=== PATIENT | male | born 1945 | race African-American/Black ===

== ENCOUNTER 2018-05-12 16:13 | Observation (INO) | payer MEDICARE ==
[~2018-05-12] VITALS: Ht 177.8 cm; Wt 105.5 kg
[2018-05-12 17:51] LABS: BASOPHILS % 1.3 % (0.0-2.0); EOSINOPHILS % 3.1 % (0.0-5.0); HEMATOCRIT. 39.2 % (42.0-52.0); HEMOGLOBIN. 13.3 g/dL (14.0-18.0); LYMPHOCYTES % 31.4 % (20.0-50.0); MEAN CORPUSCULAR HEMOGLOBIN 33.3 pg (28.0-32.0); MONOCYTES % 9.1 % (2.0-8.0); NEUTROPHILS % 55.1 % (40.0-76.0); PLATELET 191 x1000/uL (130-400); RED BLOOD CELL COUNT 3.99 mill/uL (4.7-6.1); RED CELL DISTRIBUTION WIDTH 14.2 % (11.6-14.6)
[2018-05-12 17:55] LABS: INR 1.2; PROTHROMBIN TIME 12.1 sec (9.4-11.6)
[2018-05-12 17:56] LABS: CHLORIDE 102 mEq/L (98-107)
[2018-05-12] MEDS ORDERED: FUROSEMIDE 40MG/4ML VIAL IV ONE (18:30)
[2018-05-12] MEDS ORDERED: ASPIRIN 81MG TABLET PO ONE (18:30)
[2018-05-12] MEDS ORDERED: NITROGLYCERIN 0.4MG TABLET SL SL PRN (18:30)
[2018-05-12] MEDS ORDERED: ALBUTEROL (0.083%) 2.5MG/3ML NEB HHN ONE (19:00)
[2018-05-13] VITALS (7 sets, daily range): BP systolic 91–129; BP diastolic 51–77
[2018-05-13] MEDS ORDERED: ACETAMINOPHEN 325MG TABLET PO PRN (02:15)
[2018-05-13] MEDS ORDERED: ISOS30TA11 MT (02:30)
[2018-05-13] MEDS ORDERED: LIP40 MT (02:30)
[2018-05-13] MEDS ORDERED: FURO-151 MT (02:30)
[2018-05-13] MEDS ORDERED: ASPI-1158 PO (02:30)
[2018-05-13] MEDS ORDERED: COR25 MT (02:30)
[2018-05-13] MEDS ORDERED: FINA5TAB3 MT (02:30)
[2018-05-13] MEDS ORDERED: TAMS-11 MT (02:30)
[2018-05-13] MEDS ORDERED: DOCU-138 MT (02:30)
[2018-05-13] MEDS ORDERED: LOSA50TA3 MT (02:30)
[2018-05-13] MEDS ORDERED: NITR1PAT9 TD (02:30)
[2018-05-13] MEDS ORDERED: IPRATROPIUM/ALBUTEROL 0.5-3(2.5)MG/3ML NEB HHN PRN (03:15)
[2018-05-13] MEDS: IPRATROPIUM/ALBUTEROL 0.5-3(2.5)MG/3ML NEB HHN SCH ×4 (04:47→20:39)
[2018-05-13 07:45] LABS: BASOPHILS % 0.5 % (0.0-2.0); EOSINOPHILS % 3.3 % (0.0-5.0); HEMATOCRIT. 39.8 % (42.0-52.0); HEMOGLOBIN. 13.3 g/dL (14.0-18.0); LYMPHOCYTES % 32.6 % (20.0-50.0); MEAN CORPUSCULAR HEMOGLOBIN 32.9 pg (28.0-32.0); MEAN CORPUSCULAR VOLUME 98.1 fL (80.0-94.0); MEAN PLATELET VOLUME 8.6 fl (7.4-10.4); MONOCYTES % 10.4 % (2.0-8.0); NEUTROPHILS % 53.2 % (40.0-76.0); PLATELET 183 x1000/uL (130-400); RED BLOOD CELL COUNT 4.06 mill/uL (4.7-6.1); RED CELL DISTRIBUTION WIDTH 14.2 % (11.6-14.6)
[2018-05-13 08:17] LABS: CHLORIDE 102 mEq/L (98-107)
[2018-05-13] MEDS: FUROSEMIDE 40MG TABLET PO SCH (08:28)
[2018-05-13] MEDS: ISOSORBIDE DINITRATE 30MG TABLET PO SCH ×2 (08:28→16:03)
[2018-05-13] MEDS: TAMSULOSIN HCL 0.4MG SR CAPSULE PO SCH (08:28)
[2018-05-13] MEDS: DOCUSATE SODIUM 100MG CAPSULE PO SCH ×2 (08:28→16:03)
[2018-05-13] MEDS: CARVEDILOL 25MG TABLET PO SCH ×2 (08:28→21:00)
[2018-05-13] MEDS: ASPIRIN 81MG TABLET PO SCH (08:29)
[2018-05-13] MEDS: LOSARTAN POTASSIUM 50 MG TABLET PO SCH ×2 (08:29→21:00)
[2018-05-13] MEDS: ENOXAPARIN 30MG/0.3ML SYR SUBCUT SCH ×2 (08:30→22:37)
[2018-05-13 08:34] LABS: LDL CHOLESTEROL 83 mg/dL (5-100)
[2018-05-13] MEDS: FINASTERIDE 5MG TABLET PO SCH (08:36)
[2018-05-13 08:39] LABS: HDL CHOLESTEROL 49 mg/dL (40-59)
[2018-05-13] MEDS ORDERED: NITROGLYCERIN 0.4MG/HR PATCH TOP SCH (09:00)
[2018-05-13] MEDS ORDERED: POTASSIUM CHLORIDE 20MEQ TABLET SR PO NR (11:00)
[2018-05-13] MEDS: CLOPIDOGREL 75MG TABLET PO SCH (16:03)
[2018-05-13 19:14] LABS: CLARITY URINE CLOUDY (CLEAR); COLOR URINE YELLOW (YELLOW); KETONES URINE NEGATIVE (NEGATIVE); LEUKOCYTE ESTERASE URINE TRACE (NEGATIVE); NITRITE URINE NEGATIVE (NEGATIVE); OCCULT BLOOD URINE NEGATIVE (NEGATIVE); PROTEIN URINE NEGATIVE (NEGATIVE); SPECIFIC GRAVITY URINE 1.019 (1.005-1.030)
[2018-05-13 19:32] LABS: *AMPHETAMINES SCREEN URINE NEGATIVE (NEGATIVE); *BARBITURATES SCREEN URINE NEGATIVE (NEGATIVE); *BENZODIAZEPINES SCREEN URINE NEGATIVE (NEGATIVE); *COCAINE SCREEN URINE NEGATIVE (NEGATIVE); METHADONE URINE SCREEN NEGATIVE (NEGATIVE); OPIATES URINE SCREEN NEGATIVE (NEGATIVE)
[2018-05-13 19:33] LABS: CANNABINOID URINE SCREEN NEGATIVE (NEGATIVE); PHENCYCLIDINE URINE SCREEN NEGATIVE (NEGATIVE)
[2018-05-13] MEDS ORDERED: ATORVASTATIN CALCIUM 40MG TABLET PO SCH (21:00)
[2018-05-14] VITALS: BP 116/74
[2018-05-14] MEDS: IPRATROPIUM/ALBUTEROL 0.5-3(2.5)MG/3ML NEB HHN SCH ×5 (03:58→16:00)
[2018-05-14 04:00] VITALS: BP 114/72
[2018-05-14 06:14] LABS: CHLORIDE 104 mEq/L (98-107)
[2018-05-14 06:19] LABS: BASOPHILS % 0.5 % (0.0-2.0); EOSINOPHILS % 3.7 % (0.0-5.0); HEMATOCRIT. 40.9 % (42.0-52.0); HEMOGLOBIN. 13.8 g/dL (14.0-18.0); LYMPHOCYTES % 34.7 % (20.0-50.0); MEAN CORPUSCULAR HEMOGLOBIN 32.9 pg (28.0-32.0); MEAN CORPUSCULAR VOLUME 97.3 fL (80.0-94.0); MEAN PLATELET VOLUME 8.3 fl (7.4-10.4); MONOCYTES % 9.2 % (2.0-8.0); NEUTROPHILS % 51.9 % (40.0-76.0); PLATELET 200 x1000/uL (130-400); RED CELL DISTRIBUTION WIDTH 14.3 % (11.6-14.6)
[2018-05-14 08:00] VITALS: BP_SYST 104; BP_SYST 125; BP_DIAS 71; BP_DIAS 72; BP_DIAS 74
[2018-05-14] MEDS: ISOSORBIDE DINITRATE 30MG TABLET PO SCH (09:32)
[2018-05-14] MEDS: ASPIRIN 81MG TABLET PO SCH (09:32)
[2018-05-14] MEDS: CLOPIDOGREL 75MG TABLET PO SCH (09:33)
[2018-05-14] MEDS: DOCUSATE SODIUM 100MG CAPSULE PO SCH (09:33)
[2018-05-14] MEDS: FINASTERIDE 5MG TABLET PO SCH (09:33)
[2018-05-14] MEDS: TAMSULOSIN HCL 0.4MG SR CAPSULE PO SCH (09:33)
[2018-05-14] MEDS: FUROSEMIDE 40MG TABLET PO SCH (09:34)
[2018-05-14] MEDS: CARVEDILOL 25MG TABLET PO SCH (09:34)
[2018-05-14] MEDS: LOSARTAN POTASSIUM 50 MG TABLET PO SCH (09:34)
[2018-05-14] MEDS: ENOXAPARIN 30MG/0.3ML SYR SUBCUT SCH (09:35)
[2018-05-14 12:00] VITALS: BP 97/59
[2018-05-14 16:00] VITALS: BP 112/62
[2018-05-14] MEDS ORDERED: DOCUSATE SODIUM 250MG CAPSULE PO SCH (17:00)
[2018-05-14 18:01] VITALS: BP 112/77
== END 2018-05-14 18:45 | disposition home or self-care (01) ==
LOC: ER 16:44 → INTOOBSV 18:59 → 5WST 18:59 → EDBEDREQTM 19:05 → EDBEDREQ 19:05 → ENRESERV 05-13 00:28 → EDBEDREQ 05-13 01:31
PROVIDERS: ADMIT Internal Medicine; ATTEND Internal Medicine
DX: R07.89 Other chest pain (principal); R55 Syncope and collapse; I25.110 Atherosclerotic heart disease of native coronary artery with unstable angina pectoris; I11.0 Hypertensive heart disease with heart failure; I50.9 Heart failure, unspecified; I25.5 Ischemic cardiomyopathy; I25.2 Old myocardial infarction; E87.6 Hypokalemia; E78.00 Pure hypercholesterolemia, unspecified; E78.5 Hyperlipidemia, unspecified; D64.9 Anemia, unspecified; G47.30 Sleep apnea, unspecified; I44.0 Atrioventricular block, first degree; J44.9 Chronic obstructive pulmonary disease, unspecified; Z98.61 Coronary angioplasty status; Z95.0 Presence of cardiac pacemaker
CPT/HCPCS: 36415; 71045; 80048; 80053; 80061; 80305; 81003; 83735; 83880; 84484; 85025; 85610; 93005; 93306; 93880; 94640; 94660; 96372; 96374; 99285; G0378; J1650; J1940; J7611; J7620

== ENCOUNTER 2018-09-05 19:55 | Inpatient (IN) | payer MEDICARE ==
[~2018-09-05] VITALS: Ht 177.8 cm; Wt 98.4 kg
[~2018-09-05 19:55] MED LIST: ASPI-1158 PO; COR25 MT; DOCU-138 MT; FINA5TAB3 MT; FURO-151 MT; ISOS30TA11 MT; LIP40 MT; LOSA50TA3 MT; NITR1PAT9 TD; TAMS-11 MT
[2018-09-05] MEDS ORDERED: SODIUM CHLORIDE 0.9% 1,000 ML IV ONE (22:29)
[2018-09-05] MEDS ORDERED: ONDANSETRON HCL 4MG/2ML INJ IV STA (22:29)
[2018-09-05 23:54] LABS: BASOPHILS % 0.7 % (0.0-2.0); EOSINOPHILS % 4.5 % (0.0-5.0); HEMATOCRIT. 39.8 % (42.0-52.0); HEMOGLOBIN. 13.5 g/dL (14.0-18.0); LYMPHOCYTES % 28.1 % (20.0-50.0); MEAN CORPUSCULAR HEMOGLOBIN 32.1 pg (28.0-32.0); MEAN CORPUSCULAR VOLUME 94.9 fL (80.0-94.0); MEAN PLATELET VOLUME 8.3 fl (7.4-10.4); MONOCYTES % 11.1 % (2.0-8.0); NEUTROPHILS % 55.6 % (40.0-76.0); PLATELET 216 x1000/uL (130-400); RED BLOOD CELL COUNT 4.19 mill/uL (4.7-6.1); RED CELL DISTRIBUTION WIDTH 15.8 % (11.6-14.6)
[2018-09-06 02:10] LABS: CHLORIDE 103 mEq/L (98-107)
[2018-09-06] MEDS ORDERED: ONDANSETRON HCL 4MG/2ML INJ IV PRN (11:30)
[2018-09-06] MEDS ORDERED: CLONIDINE 0.1MG TABLET PO PRN (11:30)
[2018-09-06] MEDS ORDERED: HYDROCODONE/ACETAMINOPHEN 5/325MG TABLET PO PRN (11:30)
[2018-09-06] MEDS ORDERED: MEDICATION NOT ON FORMULARY EA (Furosemide (Lasix) 1 TAB) MT SCH (11:30)
[2018-09-06] MEDS ORDERED: ACETAMINOPHEN 325MG TABLET PO PRN (11:30)
[2018-09-06] MEDS ORDERED: LORAZEPAM 0.5MG TABLET PO PRN (11:30)
[2018-09-06] MEDS ORDERED: MAGNESIUM/ALUMINUM HYDROXIDE/SIMETHICONE 30ML UDC PO PRN (11:30)
[2018-09-06] MEDS ORDERED: IPRATROPIUM/ALBUTEROL 0.5-3(2.5)MG/3ML NEB INH PRN (11:30)
[2018-09-06] MEDS ORDERED: ACETAMINOPHEN 650MG SUPP PR PRN (11:30)
[2018-09-06 12:07] LABS: INR 1.2
[2018-09-06 12:14] LABS: CHLORIDE 105 mEq/L (98-107)
[2018-09-06] MEDS ORDERED: NITROGLYCERIN 0.4MG/HR PATCH TOP SCH (12:15)
[2018-09-06 16:30] VITALS: BP 114/74
[2018-09-06] MEDS ORDERED: DIPHENHYDRAMINE 50MG/ML VIAL IV PRN (16:38)
[2018-09-06] MEDS ORDERED: POTASSIUM CHLORIDE 20MEQ TABLET SR PO NR (16:40)
[2018-09-06] MEDS ORDERED: MEDICATION NOT ON FORMULARY EA (Losartan Potassium (Cozaar) 1 TAB) MT SCH (17:00)
[2018-09-06 17:02] LABS: BG BASE EXCESS -0.5 mmol/L (-2.0-2.0); BG CARBOXYHEMOGLOBIN 0.8 % (0.5-1.5); BG DEOXYHEMOGLOBIN 4.7 % (0.0-5.0); BG HCO3 ACT 22.2 mmol/L (22.0-26.0); BG METHEMOGLOBIN 0.6 % (0.0-1.5); BG OXYGEN SATURATION 95.2 % (92.0-98.5); BG OXYHEMOGLOBIN 93.9 % (94.0-97.0); BG PCO2 31.3 mmHg (35.0-45.0); BG PH 7.469 (7.350-7.450); BG PO2 76.8 mmHg (75.0-100.0); BG SAMPLE SITE RIGHT RADIAL; BG TOTAL HEMOGLOBIN 14.6 g/dL (12.0-18.0); BG VENT MODE ROOM AIR
[2018-09-06] MEDS ORDERED: IPRATROPIUM/ALBUTEROL 0.5-3(2.5)MG/3ML NEB HHN SCH (18:00)
[2018-09-06] MEDS ORDERED: LEVOFLOXACIN 500MG PREMIX 100 ML IV SCH (18:00)
[2018-09-06] MEDS ORDERED: DOCU-138 MT (18:14)
[2018-09-06] MEDS ORDERED: ALBU4TAB6 MT (18:15)
[2018-09-06 19:39] VITALS: BP 123/76
[2018-09-06 20:00] VITALS: BP 123/76
[2018-09-06] MEDS ORDERED: PNEUMOCOCCAL 23-VAL P-SAC VAC 0.5 ML IM ONE (20:00)
[2018-09-06] MEDS ORDERED: INFLUENZA VIRUS VACCINE(AFLURIA) 0.5ML SYR IM ONE (20:00)
[2018-09-06 20:19] VITALS: BP 104/68
[2018-09-06] MEDS: DOCUSATE SODIUM 100MG CAPSULE PO SCH (20:46)
[2018-09-06] MEDS: CARVEDILOL 25MG TABLET PO SCH (20:47)
[2018-09-06] MEDS: FUROSEMIDE 40MG TABLET PO SCH (20:47)
[2018-09-06] MEDS: ISOSORBIDE DINITRATE 30MG TABLET PO SCH (20:47)
[2018-09-06] MEDS: METHYLPREDNISOLONE SOD SUCC 40 MG/ML VIAL IV SCH (20:48)
[2018-09-06] MEDS: FAMOTIDINE 20MG/2ML VIAL IV SCH (20:48)
[2018-09-06] MEDS: OFLOXACIN 0.3% OPHTH SOLN 5ML LEFTEYE SCH ×2 (20:58→21:38)
[2018-09-06] MEDS: FINASTERIDE 5MG TABLET PO SCH (20:59)
[2018-09-06] MEDS ORDERED: ATORVASTATIN CALCIUM 40MG TABLET PO SCH (21:00)
[2018-09-06] MEDS ORDERED: NA PHOS,M-B/NA PHOS,DI-BA ENEMA 118ML PR PRN (21:00)
[2018-09-06] MEDS: IPRATROPIUM/ALBUTEROL 0.5-3(2.5)MG/3ML NEB INH SCH (21:15)
[2018-09-06] MEDS: BUDESONIDE 0.5MG/2ML NEB HHN SCH (21:15)
[2018-09-07 00:02] VITALS: BP 118/71
[2018-09-07] MEDS: METHYLPREDNISOLONE SOD SUCC 40 MG/ML VIAL IV SCH ×3 (02:25→17:34)
[2018-09-07] MEDS: IPRATROPIUM/ALBUTEROL 0.5-3(2.5)MG/3ML NEB INH SCH ×4 (03:09→20:07)
[2018-09-07 04:00] VITALS: BP 104/63
[2018-09-07 07:09] LABS: BASOPHILS % 0.1 % (0.0-2.0); HEMATOCRIT. 40.7 % (42.0-52.0); HEMOGLOBIN. 13.7 g/dL (14.0-18.0); LYMPHOCYTES % 12.9 % (20.0-50.0); MEAN CORPUSCULAR HEMOGLOBIN 31.7 pg (28.0-32.0); MEAN CORPUSCULAR VOLUME 94.4 fL (80.0-94.0); MEAN PLATELET VOLUME 8.3 fl (7.4-10.4); MONOCYTES % 2.2 % (2.0-8.0); NEUTROPHILS % 84.8 % (40.0-76.0); PLATELET 208 x1000/uL (130-400); RED BLOOD CELL COUNT 4.32 mill/uL (4.7-6.1); RED CELL DISTRIBUTION WIDTH 15.3 % (11.6-14.6)
[2018-09-07 07:54] LABS: CHLORIDE 107 mEq/L (98-107)
[2018-09-07 08:03] LABS: HDL CHOLESTEROL 52 mg/dL (40-59); LDL CHOLESTEROL 59 mg/dL (5-100); T4 FREE 0.93 ng/dL (0.76-1.46)
[2018-09-07] MEDS: BUDESONIDE 0.5MG/2ML NEB HHN SCH ×2 (08:40→20:07)
[2018-09-07] MEDS ORDERED: CLOPIDOGREL 75MG TABLET PO SCH (09:00)
[2018-09-07] MEDS ORDERED: ASPIRIN 81MG EC TABLET PO SCH (09:00)
[2018-09-07] MEDS ORDERED: TAMSULOSIN HCL 0.4MG SR CAPSULE PO SCH (09:00)
[2018-09-07] MEDS ORDERED: LOSARTAN POTASSIUM 50 MG TABLET PO SCH (09:00)
[2018-09-07] MEDS: CARVEDILOL 25MG TABLET PO SCH ×2 (09:26→17:34)
[2018-09-07] MEDS: OFLOXACIN 0.3% OPHTH SOLN 5ML LEFTEYE SCH ×3 (09:26→17:33)
[2018-09-07] MEDS: FAMOTIDINE 20MG/2ML VIAL IV SCH (09:27)
[2018-09-07] MEDS: ISOSORBIDE DINITRATE 30MG TABLET PO SCH (09:27)
[2018-09-07] MEDS: DOCUSATE SODIUM 100MG CAPSULE PO SCH ×2 (09:27→17:33)
[2018-09-07] MEDS: FUROSEMIDE 40MG TABLET PO SCH (09:27)
[2018-09-07] MEDS: FINASTERIDE 5MG TABLET PO SCH (09:28)
[2018-09-07 12:00] VITALS: BP 118/76
[2018-09-07] MEDS ORDERED: NITROGLYCERIN 0.4MG/HR PATCH TOP SCH (12:45)
[2018-09-07] MEDS ORDERED: GUAIFENESIN 200MG/10ML SUGAR FREE UDC PO PRN (12:45)
[2018-09-07 16:00] VITALS: BP 118/72
[2018-09-07 19:11] VITALS: BP 121/69
[2018-09-07] MEDS ORDERED: LEVOFLOXACIN 500MG PREMIX 100 ML IV SCH (20:00)
== END 2018-09-07 21:15 | disposition home or self-care (01) | DRG 865 ==
LOC: ER 19:55 → 7WST 09-06 05:01 → EDBEDREQ 09-06 05:03 → EDBEDREQTM 09-06 05:03 → ENRESERV 09-06 14:47
PROVIDERS: ADMIT Internal Medicine; ATTEND Internal Medicine
DX: B34.9 Viral infection, unspecified (principal); I50.33 Acute on chronic diastolic (congestive) heart failure; J44.1 Chronic obstructive pulmonary disease with (acute) exacerbation; I42.0 Dilated cardiomyopathy; H10.9 Unspecified conjunctivitis; E78.5 Hyperlipidemia, unspecified; E87.6 Hypokalemia; D64.9 Anemia, unspecified; I25.10 Atherosclerotic heart disease of native coronary artery without angina pectoris; I25.5 Ischemic cardiomyopathy; I11.0 Hypertensive heart disease with heart failure; N40.0 Benign prostatic hyperplasia without lower urinary tract symptoms; G47.30 Sleep apnea, unspecified; Z60.2 Problems related to living alone; Z85.048 Personal history of other malignant neoplasm of rectum, rectosigmoid junction, and anus; Z79.82 Long term (current) use of aspirin; Z82.49 Family history of ischemic heart disease and other diseases of the circulatory system; Z95.810 Presence of automatic (implantable) cardiac defibrillator; I25.2 Old myocardial infarction; Z98.61 Coronary angioplasty status; Z99.81 Dependence on supplemental oxygen; Z79.899 Other long term (current) drug therapy
CPT/HCPCS: 36415; 36600; 71045; 80048; 80061; 82375; 82805; 83605; 83735; 83880; 84439; 84443; 84484; 87804; 90686; 90732; 93005; 93306; 94640; 96361; 96374; 97162; 99285; J1956; J2405; J2920; J3490; J7030; J7050; J7620; J7626

== ENCOUNTER 2021-11-08 12:03 | Inpatient (IN) | payer MEDICARE ==
[~2021-11-08] VITALS: Ht 172.7 cm; Wt 87.5 kg
[~2021-11-08 12:03] MED LIST changes: +ALBU4TAB6 MT; -ASPI-1158 PO; +ASPI-1406 PO
[2021-11-08] MEDS ORDERED: MORPHINE SULFATE 4 MG/ML CPJ (NOT FOR IM USE) IV STA (12:23)
[2021-11-08] MEDS ORDERED: ONDANSETRON HCL 4MG/2ML INJ IV STA (12:23)
[2021-11-08] MEDS ORDERED: ASPIRIN 81MG TABLET PO ONE (12:30)
[2021-11-08 12:55] LABS: BASOPHILS % 0.6 % (0.0-2.0); EOSINOPHILS % 2.8 % (0.0-5.0); HEMATOCRIT. 45.5 % (42.0-52.0); LYMPHOCYTES % 21.1 % (20.0-50.0); MEAN CORPUSCULAR VOLUME 96.6 fL (80.0-94.0); MONOCYTES % 7.3 % (2.0-8.0); NEUTROPHILS % 68.2 % (40.0-76.0); PLATELET 170 x1000/uL (130-400); RED BLOOD CELL COUNT 4.71 mill/uL (4.7-6.1); RED CELL DISTRIBUTION WIDTH 15.2 % (11.6-14.6)
[2021-11-08 13:02] LABS: CHLORIDE 108 mEq/L (98-107)
[2021-11-08 13:46] LABS: D-DIMER 2.45 mg/L FEU (<0.50); INR 1.1; PROTHROMBIN TIME 11.7 sec (9.6-11.0)
[2021-11-08] MEDS ORDERED: ENOXAPARIN 100MG/ML SYR SUBCUT ONE (14:30)
[2021-11-08] MEDS ORDERED: NITROGLYCERIN OINT 1GM/INCH UDPKT TD ONE (16:45)
[2021-11-08] MEDS ORDERED: FUROSEMIDE 40MG/4ML VIAL IV ONE (16:45)
[2021-11-08 21:20] VITALS: BP 129/85
[2021-11-08 22:00] VITALS: BP 129/85
[2021-11-09] VITALS: BP 114/56
[2021-11-09] MEDS: IPRATROPIUM/ALBUTEROL 0.5-3(2.5)MG/3ML NEB HHN SCH ×5 (03:45→21:02)
[2021-11-09] MEDS ORDERED: IPRATROPIUM/ALBUTEROL 0.5-3(2.5)MG/3ML NEB ONE (03:53)
[2021-11-09 04:00] VITALS: BP 108/68
[2021-11-09 04:33] LABS: CREATINE KINASE MB FRACTION 3.2 ng/mL (0.5-3.6)
[2021-11-09 08:00] VITALS: BP 133/74
[2021-11-09] MEDS ORDERED: FUROSEMIDE 40MG/4ML VIAL IVP SCH (09:00)
[2021-11-09] MEDS: POTASSIUM CHLORIDE 20MEQ TABLET SR PO SCH (09:44)
[2021-11-09] MEDS: LOSARTAN POTASSIUM 50 MG TABLET PO SCH ×2 (09:44→16:52)
[2021-11-09] MEDS: ENOXAPARIN 40MG/0.4ML SYR SUBCUT SCH (09:44)
[2021-11-09] MEDS: TAMSULOSIN HCL 0.4MG SR CAPSULE PO SCH (09:45)
[2021-11-09] MEDS: PANTOPRAZOLE 40MG DR TABLET PO SCH (09:46)
[2021-11-09] MEDS: DOCUSATE SODIUM 100MG CAPSULE PO SCH ×2 (09:46→16:52)
[2021-11-09] MEDS: ISOSORBIDE DINITRATE 30MG TABLET PO SCH ×2 (09:46→16:52)
[2021-11-09] MEDS: CARVEDILOL 12.5MG TABLET PO SCH ×2 (09:46→16:52)
[2021-11-09] MEDS: ASPIRIN 81MG TABLET PO SCH (09:46)
[2021-11-09] MEDS: CLOPIDOGREL 75MG TABLET PO SCH (09:49)
[2021-11-09 12:00] VITALS: BP 104/57
[2021-11-09] MEDS ORDERED: POTASSIUM CHLORIDE 20MEQ TABLET SR PO SCH (12:15)
[2021-11-09 14:18] LABS: CREATINE KINASE MB FRACTION 3.3 ng/mL (0.5-3.6)
[2021-11-09 16:00] VITALS: BP 122/66
[2021-11-09] MEDS: FUROSEMIDE 40MG/4ML VIAL IVP SCH (16:52)
[2021-11-09 20:00] VITALS: BP 115/75
[2021-11-09] MEDS ORDERED: NITROGLYCERIN 0.4MG TABLET SL SL PRN (20:45)
[2021-11-09] MEDS ORDERED: ENOXAPARIN 100MG/ML SYR SUBCUT NR (20:45)
[2021-11-09] MEDS ORDERED: NON FORMULARY PATIENT HOME MED XX SCH (20:45)
[2021-11-09] MEDS ORDERED: NALOXONE HCL 0.4MG/ML VIAL IV PRN (21:00)
[2021-11-09] MEDS ORDERED: MORPHINE SULFATE 2 MG/ML CPJ (NOT FOR IM USE) IV PRN (21:00)
[2021-11-09] MEDS: BUDESONIDE 0.5MG/2ML NEB HHN SCH (21:02)
[2021-11-09] MEDS: FINASTERIDE 5MG TABLET PO SCH (21:27)
[2021-11-09] MEDS: ATORVASTATIN CALCIUM 40MG TABLET PO SCH (21:28)
[2021-11-10] VITALS: BP_SYST 107; BP_SYST 139; BP_DIAS 67; BP_DIAS 72
[2021-11-10 00:29] LABS: CREATINE KINASE MB FRACTION 2.4 ng/mL (0.5-3.6)
[2021-11-10 04:00] VITALS: BP 105/66
[2021-11-10 08:00] VITALS: BP 113/72
[2021-11-10] MEDS: FUROSEMIDE 40MG/4ML VIAL IVP SCH ×2 (08:16→16:15)
[2021-11-10] MEDS: TAMSULOSIN HCL 0.4MG SR CAPSULE PO SCH (08:16)
[2021-11-10] MEDS: CARVEDILOL 12.5MG TABLET PO SCH ×2 (08:16→16:14)
[2021-11-10] MEDS: ENOXAPARIN 40MG/0.4ML SYR SUBCUT SCH (08:16)
[2021-11-10] MEDS: ASPIRIN 81MG TABLET PO SCH (08:16)
[2021-11-10] MEDS: POTASSIUM CHLORIDE 20MEQ TABLET SR PO SCH (08:17)
[2021-11-10] MEDS: DOCUSATE SODIUM 100MG CAPSULE PO SCH ×2 (08:17→16:15)
[2021-11-10] MEDS: PANTOPRAZOLE 40MG DR TABLET PO SCH (08:17)
[2021-11-10] MEDS: LOSARTAN POTASSIUM 50 MG TABLET PO SCH ×2 (08:17→16:14)
[2021-11-10] MEDS: ISOSORBIDE DINITRATE 30MG TABLET PO SCH ×2 (08:17→16:14)
[2021-11-10] MEDS: CLOPIDOGREL 75MG TABLET PO SCH (08:20)
[2021-11-10] MEDS: BUDESONIDE 0.5MG/2ML NEB HHN SCH ×2 (08:57→21:13)
[2021-11-10] MEDS: IPRATROPIUM/ALBUTEROL 0.5-3(2.5)MG/3ML NEB HHN SCH ×3 (08:57→21:14)
[2021-11-10 12:00] VITALS: BP 103/61
[2021-11-10 16:00] VITALS: BP 104/66
[2021-11-10 18:12] LABS: BASOPHILS % 0.3 % (0.0-2.0); EOSINOPHILS % 2.8 % (0.0-5.0); HEMATOCRIT. 46.7 % (42.0-52.0); HEMOGLOBIN. 15.7 g/dL (14.0-18.0); LYMPHOCYTES % 27.1 % (20.0-50.0); MEAN CORPUSCULAR HEMOGLOBIN 32.2 pg (28.0-32.0); MEAN CORPUSCULAR VOLUME 96.2 fL (80.0-94.0); MEAN PLATELET VOLUME 9.4 fl (7.4-10.4); MONOCYTES % 9.7 % (2.0-8.0); NEUTROPHILS % 60.1 % (40.0-76.0); PLATELET 182 x1000/uL (130-400); RED BLOOD CELL COUNT 4.86 mill/uL (4.7-6.1); RED CELL DISTRIBUTION WIDTH 14.9 % (11.6-14.6)
[2021-11-10 18:16] LABS: CHLORIDE 103 mEq/L (98-107)
[2021-11-10 20:00] VITALS: BP 115/76
[2021-11-10] MEDS: FINASTERIDE 5MG TABLET PO SCH (21:42)
[2021-11-10] MEDS: ATORVASTATIN CALCIUM 40MG TABLET PO SCH (21:42)
[2021-11-11] VITALS: BP 114/69
[2021-11-11] MEDS: IPRATROPIUM/ALBUTEROL 0.5-3(2.5)MG/3ML NEB HHN SCH ×5 (01:01→20:40)
[2021-11-11 04:00] VITALS: BP 115/73
[2021-11-11] MEDS: FUROSEMIDE 40MG/4ML VIAL IVP SCH (06:37)
[2021-11-11 06:59] LABS: BASOPHILS % 0.5 % (0.0-2.0); EOSINOPHILS % 3.3 % (0.0-5.0); HEMOGLOBIN. 16.2 g/dL (14.0-18.0); LYMPHOCYTES % 29.8 % (20.0-50.0); MEAN CORPUSCULAR HEMOGLOBIN 32.5 pg (28.0-32.0); MEAN CORPUSCULAR VOLUME 96.6 fL (80.0-94.0); MONOCYTES % 11.1 % (2.0-8.0); NEUTROPHILS % 55.3 % (40.0-76.0); PLATELET 190 x1000/uL (130-400); RED BLOOD CELL COUNT 4.97 mill/uL (4.7-6.1)
[2021-11-11 07:41] LABS: CHLORIDE 102 mEq/L (98-107)
[2021-11-11 08:00] VITALS: BP 124/81
[2021-11-11] MEDS: BUDESONIDE 0.5MG/2ML NEB HHN SCH (08:20)
[2021-11-11] MEDS: LOSARTAN POTASSIUM 50 MG TABLET PO SCH ×2 (08:32→17:00)
[2021-11-11] MEDS: CARVEDILOL 12.5MG TABLET PO SCH ×2 (08:32→17:00)
[2021-11-11] MEDS: ISOSORBIDE DINITRATE 30MG TABLET PO SCH ×2 (08:32→17:00)
[2021-11-11] MEDS: ASPIRIN 81MG TABLET PO SCH (08:32)
[2021-11-11] MEDS: DOCUSATE SODIUM 100MG CAPSULE PO SCH ×2 (08:32→17:33)
[2021-11-11] MEDS: TAMSULOSIN HCL 0.4MG SR CAPSULE PO SCH (08:32)
[2021-11-11] MEDS: FAMOTIDINE 20MG TABLET PO SCH ×2 (08:33→21:49)
[2021-11-11] MEDS: POTASSIUM CHLORIDE 20MEQ TABLET SR PO SCH (08:33)
[2021-11-11] MEDS: CLOPIDOGREL 75MG TABLET PO SCH (08:33)
[2021-11-11] MEDS ORDERED: NICARDIPINE 100MCG/ML 10ML VIAL (CATH LAB) IV ONE (10:00)
[2021-11-11] MEDS ORDERED: NITROGLYCERIN 50MCG/ML 10ML VIAL (CATH LAB) IV ONE (10:00)
[2021-11-11] MEDS ORDERED: HEPARIN SODIUM 1,000 UNIT/1ML VIAL IV ONE (10:00)
[2021-11-11] MEDS ORDERED: LIDOCAINE HCL 1% 20ML VIAL (Pyxis) INJ ONE (11:51)
[2021-11-11] MEDS ORDERED: IODIXANOL 320MG/ML 100 ML BOTTLE IV ONE (11:51)
[2021-11-11] MEDS ORDERED: MIDAZOLAM HCL 2 MG/2 ML VIAL ONE (12:11)
[2021-11-11] MEDS ORDERED: FENTANYL CITRATE/PF 50MCG/ML 2ML VIAL ONE (12:11)
[2021-11-11] MEDS ORDERED: ACETAMINOPHEN 325MG TABLET PO PRN ×2 (13:00)
[2021-11-11] MEDS ORDERED: ATROPINE SULFATE 1MG/10ML SYR IV PRN ×2 (13:00)
[2021-11-11] MEDS: FUROSEMIDE 40MG TABLET PO SCH (17:33)
[2021-11-11 20:00] VITALS: BP 117/70
[2021-11-11] MEDS: ATORVASTATIN CALCIUM 40MG TABLET PO SCH (21:49)
[2021-11-11] MEDS: FINASTERIDE 5MG TABLET PO SCH (21:49)
[2021-11-12] VITALS: BP 116/72
[2021-11-12 04:00] VITALS: BP 116/73
[2021-11-12] MEDS: FUROSEMIDE 40MG TABLET PO SCH (06:40)
[2021-11-12 07:58] VITALS: BP 114/73
[2021-11-12] MEDS: IPRATROPIUM/ALBUTEROL 0.5-3(2.5)MG/3ML NEB HHN SCH (08:57)
[2021-11-12] MEDS: CLOPIDOGREL 75MG TABLET PO SCH (09:33)
[2021-11-12] MEDS: TAMSULOSIN HCL 0.4MG SR CAPSULE PO SCH (09:33)
[2021-11-12] MEDS: DOCUSATE SODIUM 100MG CAPSULE PO SCH (09:33)
[2021-11-12] MEDS: ISOSORBIDE DINITRATE 30MG TABLET PO SCH (09:34)
[2021-11-12] MEDS: ASPIRIN 81MG TABLET PO SCH (09:34)
[2021-11-12] MEDS: FAMOTIDINE 20MG TABLET PO SCH (09:34)
[2021-11-12] MEDS: LOSARTAN POTASSIUM 50 MG TABLET PO SCH (09:34)
[2021-11-12] MEDS: CARVEDILOL 12.5MG TABLET PO SCH (09:34)
[2021-11-12 11:52] VITALS: BP 96/61
[2021-11-12 12:00] VITALS: BP 96/61
[2021-11-12] MEDS: POTASSIUM CHLORIDE 20MEQ TABLET SR PO SCH (12:11)
== END 2021-11-12 14:05 | disposition home or self-care (01) | DRG 280 ==
LOC: ER 12:03 → 7EST 16:37 → EDBEDREQTM 18:41 → EDBEDREQ 18:41 → ENRESERV 20:19 → UNDODISIN 11-11 18:34
PROVIDERS: ADMIT Internal Medicine; ATTEND Internal Medicine
PROC: 4A023N7 Measurement of Cardiac Sampling and Pressure, Left Heart, Percutaneous Approach (ICD-10-PCS; principal; 2021-11-11)
PROC: B211YZZ Fluoroscopy of Multiple Coronary Arteries using Other Contrast (ICD-10-PCS; 2021-11-11)
DX: I21.4 Non-ST elevation (NSTEMI) myocardial infarction (principal); I50.23 Acute on chronic systolic (congestive) heart failure; I11.0 Hypertensive heart disease with heart failure; E78.5 Hyperlipidemia, unspecified; I25.5 Ischemic cardiomyopathy; I27.20 Pulmonary hypertension, unspecified; I44.7 Left bundle-branch block, unspecified; Z20.822 Contact with and (suspected) exposure to COVID-19; I25.119 Atherosclerotic heart disease of native coronary artery with unspecified angina pectoris; J44.9 Chronic obstructive pulmonary disease, unspecified; N40.0 Benign prostatic hyperplasia without lower urinary tract symptoms; Z87.891 Personal history of nicotine dependence; Z95.5 Presence of coronary angioplasty implant and graft; Z95.810 Presence of automatic (implantable) cardiac defibrillator; I25.2 Old myocardial infarction; Z79.899 Other long term (current) drug therapy
CPT/HCPCS: 36415; 71045; 71275; 80048; 80053; 82550; 82553; 83880; 84484; 85025; 85379; 87426; 93005; 93306; 93458; 94640; 99291; C1769; C1887; C1893; J1644; J1650; J1940; J2250; J2270; J2405; J3010; J3490; J7040; J7626; Q9967

== ENCOUNTER 2022-07-31 19:27 | Emergency (ER) | payer BC, MEDICARE ==
[~2022-07-31] VITALS: Ht 182.9 cm; Wt 87.0 kg
[2022-07-31] MEDS ORDERED: KETOROLAC 60MG/2ML VIAL IM ONE (21:00)
[2022-08-01] MEDS ORDERED: IBUP-2029 MT (01:09)
[2022-08-01] MEDS ORDERED: METH-653 MT (01:09)
[2022-08-01 01:47] VITALS: BP 135/78
== END 2022-08-01 01:49 | disposition home or self-care (01) ==
LOC: ER 19:27
DX: S30.0XXA Contusion of lower back and pelvis, initial encounter (principal); I50.9 Heart failure, unspecified; J44.9 Chronic obstructive pulmonary disease, unspecified; N40.0 Benign prostatic hyperplasia without lower urinary tract symptoms; Z95.0 Presence of cardiac pacemaker; Z79.82 Long term (current) use of aspirin; W01.0XXA Fall on same level from slipping, tripping and stumbling without subsequent striking against object, initial encounter; Y93.89 Activity, other specified; Y92.018 Other place in single-family (private) house as the place of occurrence of the external cause
CPT/HCPCS: 72100; 96372; 99283; J1885

== ENCOUNTER 2022-08-01 03:43 | Emergency (ER) | payer BC, MEDICARE ==
[~2022-08-01] VITALS: Ht 172.7 cm; Wt 78.4 kg
[~2022-08-01 03:43] MED LIST changes: +IBUP-2029 MT; +METH-653 MT
[2022-08-01] MEDS ORDERED: FAMOTIDINE 20MG/2ML VIAL IV STA (03:53)
[2022-08-01] MEDS ORDERED: ONDANSETRON HCL 4MG/2ML INJ IV STA (03:53)
[2022-08-01 04:01] VITALS: BP 141/85
[2022-08-01] MEDS ORDERED: ACETAMINOPHEN 325MG TABLET PO STA (04:25)
[2022-08-01 04:36] LABS: CLARITY URINE CLEAR (CLEAR); COLOR URINE YELLOW (YELLOW); KETONES URINE TRACE (NEGATIVE); LEUKOCYTE ESTERASE URINE NEGATIVE (NEGATIVE); NITRITE URINE NEGATIVE (NEGATIVE); OCCULT BLOOD URINE NEGATIVE (NEGATIVE); PROTEIN URINE 2+ (NEGATIVE); SPECIFIC GRAVITY URINE 1.037 (1.005-1.030)
== END 2022-08-01 07:15 | disposition home or self-care (01) ==
LOC: ER 03:43
DX: N44.2 Benign cyst of testis (principal); N43.3 Hydrocele, unspecified; I50.9 Heart failure, unspecified; J44.9 Chronic obstructive pulmonary disease, unspecified; N40.0 Benign prostatic hyperplasia without lower urinary tract symptoms; Z91.81 History of falling; Z95.0 Presence of cardiac pacemaker; Z79.82 Long term (current) use of aspirin
CPT/HCPCS: 76870; 81003; 93976; 99284